=== PATIENT | female | born 1990 | race Caucasian/White ===

== ENCOUNTER 2016-10-23 17:48 | Emergency (ER) | payer MEDICAID ==
[~2016-10-23] VITALS: Ht 162.6 cm; Wt 65.0 kg
[~2016-10-23 17:48] MED LIST: ALBU18HF INHALATION; FERR28TA PO; PREN-39 PO; SODI44SP11 NASAL
[2016-10-23 18:00] VITALS: Ht 162.6 cm; Wt 65.0 kg
[2016-10-23] MEDS ORDERED: ALBUTEROL 0.5% (NEB) 2.5 MG/0.5 ML AMP INH STA (18:31)
[2016-10-23] MEDS ORDERED: DEXAMETHASONE 10 MG/ML 1 ML INJ IM STA (18:31)
[2016-10-23] MEDS ORDERED: IPRATROPIUM (NEB) 0.5 MG/2.5 ML AMP INH STA (18:31)
--- NOTE | 2016-10-23 19:19 | RADRPT ---
PROCEDURE: Chest Radiograph. CLINICAL INDICATION: Asthma exacerbation TECHNIQUE: Single frontal chest radiograph. COMPARISON: None available FINDINGS: The cardiomediastinal silhouette is within normal limits. No infiltrate or effusion is seen. Th e bones are intact. IMPRESSION: 1. Unremarkable chest radiograph. RPTAT: [facility] .You Bernstein MD, MD Date Time Electronically viewed and signed by .You Bernstein MD, on 10/23/2016 19:19 .B/
[2016-10-23] MEDS ORDERED: ALBU2.5V3 NEB (20:16)
[2016-10-23] MEDS ORDERED: ALBU18HF INHALATION (20:16)
[2016-10-23 20:29] VITALS: BP 109/59; PULSE 89; RESP 20; TEMP 98.8
--- NOTE | 2016-10-24 00:25 | ERD ---
ER Documentation Chief Complaint Date/Time DATE: 10/24/16 TIME: 00:23 Chief Complaint ASTHMA NO RELIEF W/HHN TX @HOME, SPEAKING FULL SENTENCES. HPI 25-year-old female patient with a past medical history of asthma presents the ED complaining of intermittent cough and shortness of breath that started 2 days ago. Reports that she used her inhaler without relief. States that she also used a nebulizer machine at home and stated that it did not help her symptoms. Denies any recent traveling. Denies any leg swelling. Denies any fever, chills, nausea, vomiting, chest pain, palpitations, abdominal pain. ROS All systems reviewed and are negative except as per history of present illness. Medications Home Meds Active Scripts Albuterol Sulfate* (Albuterol Sulfate* Neb) 0.083%-3 Ml Neb, 2.5 MG NEB Q4 Y for SHORTNESS OF BREATH, #30 EA Prov:ANIBAL CONRAD PA-C 10/23/16 Albuterol Sulfate* (Ventolin HFA*) 18 Gm Hfa.aer.ad, 2 PUFF INHALATION Q4H, #1 INHALER Prov:ANIBAL CONRAD PA-C 10/23/16 Sodium Chloride (Saline Nasal Gaston) 45 Ml Gaston, 2 SPRAYS NASAL Q2H Y for NASAL CONGESTION, #1 BOTTLE Prov:BRYN GARRISON NP 08/31/15 Albuterol Sulfate* (Ventolin HFA*) 18 Gm Hfa.aer.ad, 2 PUFF INHALATION Q4H, #1 INHALER Prov:BRYN GARRISON NP 08/31/15 Reported Medications Ferrous Sulfate (Ferrous Sulfate) 1 Tab Tablet, 1 TAB PO DAILY 02/18/11 Vits W-Ca,Fe,Fa(<1MG) ( Vitamins) 1 Tab Tablet, 1 TAB PO DAILY 02/18/11 Allergies Allergies: Coded Allergies: No Known Allergy (Verified , 02/18/11) PMhx/Soc History of Surgery: No Anesthesia Reaction: No Hx Neurological Disorder: No Hx Respiratory Disorders: Yes (ASTHMA) Hx Cardiac Disorders: No Hx Psychiatric Problems: No Hx Miscellaneous Medical Probl: No Hx Alcohol Use: No Hx Substance Use: No Hx Tobacco Use: No Smoking Status: Never smoker Physical Exam Vitals Vital Signs Date Time Temp Pulse Resp B/P Pulse Ox O2 Delivery O2 Flow Rate FiO2 9/11/17 20:29 98.8 89 20 109/59 96 Room Air 10/23/16 18:51 26 21 10/23/16 18:47 Nasal Cannula 2 10/23/16 18:00 98.2 65 18 121/73 93 Physical Exam Const: [id number], well-nourished. In no acute distress. Head: Atraumatic, normocephalic Eyes: Normal Conjunctiva without injection. No purulent discharge. PERRL. EOMI ENT: Normal external ear. Ear canal without erythema. Tympanic membrane pearly campbell without effusion or bulging. Nasal canal clear with normal turbinates. Moist oropharynx without tonsillar exudates. Non-erythematous pharynx. Uvula midline. No drooling. No trismus. Neck: Full range of motion. No meningismus. No cervical lymphadenopathy. Resp: Inspiratory and expiratory wheezing noted on left upper lung lobe. No rhonchi, rales, or crackles. No accessory muscle use. No retractions. Cardio: Regular rate and rhythm. No murmurs, rubs or gallops. Abd: Soft, non tender, non distended. Normal bowel sounds. No palpable masses. No rebound tenderness. No guarding. Skin: No petechiae or rashes Back: No midline tenderness. No CVA tenderness. Ext: No cyanosis, or edema. Neur: Awake and alert. Psych: Normal Mood and Affect Results 24 hrs Current Medications Medications (Trade) Dose Ordered Sig/Maureen Route PRN Reason Start Time Stop Time Status Last Admin Dose Admin Albuterol (Proventil 0.5% (Neb)) 10 mg ONCE STAT INH 10/23/16 18:31 10/23/16 18:32 DC 10/23/16 18:50 Ipratropium Marion (Atrovent 0.02% (Neb)) 1 mg ONCE STAT INH 10/23/16 18:31 10/23/16 18:32 DC 10/23/16 18:50 Dexamethasone (Decadron) 10 mg ONCE STAT IM 10/23/16 18:31 10/23/16 18:32 DC 10/23/16 18:49 Procedures/MDM 25-year-old female patient with a past medical history of asthma presents to the ED complaining of wheezing and shortness of breath started intermittently for 2 days associated with cough. Patient is afebrile and nontoxic-appearing. Patient has normal vital signs. A chest x-ray was ordered to further evaluate patient. A breathing treatment consisting of 10 mg continuous albuterol, 1 mg continuous Atrovent, 10 mg IM Decadron was ordered to further treat patient with improvement. Chest x-ray was negative for any pneumonia, pneumothorax, pleural effusion. Patient likely has an asthma exacerbation. Low suspicion for atypical SD, pneumonia, pulmonary embolism, pneumothorax, cardiac tamponade, sinusitis, peritonsillar abscess, mastoiditis, Zack's angina, retropharyngeal abscess, meningitis, sepsis or other emergent conditions. Patient's respiratory status has stabilized while in the department and is appropriate for outpatient work up. Exam and work up not consistent w/ impending respiratory failure or cardiovascular collapse. Discharge medications: Ventolin, Albuterol Follow up with primary care physician in 1-2 days. Instructed patient to return to the ED sooner for any worsening symptoms. Patient's questions were answered. Patient understood and agreed with discharge plan. Patient discharged stable. Departure Diagnosis: Primary Impression: Asthma with acute exacerbation Asthma severity: mild intermittent Qualified Code: J45.21 - Mild intermittent asthma with acute exacerbation Condition: Stable Patient Instructions: Asthma, Acute (Adult) Referrals: COMMUNITY CLINICS YOU HAVE RECEIVED A MEDICAL SCREENING EXAM AND THE RESULTS INDICATE THAT YOU DO NOT HAVE A CONDITION THAT REQUIRES URGENT TREATMENT IN THE EMERGENCY DEPARTMENT. FURTHER EVALUATION AND TREATMENT OF YOUR CONDITION CAN WAIT UNTIL YOU ARE SEEN IN YOUR DOCTORS OFFICE WITHIN THE NEXT 1-2 DAYS. IT IS YOUR RESPONSIBILITY TO MAKE AN APPOINTMENT FOR FOLOW-UP CARE. IF YOU HAVE A PRIMARY DOCTOR --you should call your primary doctor and schedule an appointment IF YOU DO NOT HAVE A PRIMARY DOCTOR YOU CAN CALL OUR PHYSICIAN REFERRAL HOTLINE AT IF YOU CAN NOT AFFORD TO SEE A PHYSICIAN YOU CAN CHOSE FROM THE FOLLOWING [facility] CLINICS [facility] [address] [place]. [facility] [address] [facility]. [facility] [address] [facility] [address] [facility] [address] [facility]. [facility] [address] [facility]. [facility] YOU HAVE RECEIVED A MEDICAL SCREENING EXAM AND THE RESULTS INDICATE THAT YOU DO NOT HAVE A CONDITION THAT REQUIRES URGENT TREATMENT IN THE EMERGENCY DEPARTMENT. FURTHER EVALUATION AND TREATMENT OF YOUR CONDITION CAN WAIT UNTIL YOU ARE SEEN IN YOUR DOCTORS OFFICE WITHIN THE NEXT 1-2 DAYS. IT IS YOUR RESPONSIBILITY TO MAKE AN APPOINTMENT FOR FOLOW-UP CARE. IF YOU HAVE A PRIMARY DOCTOR --you should call your primary doctor and schedule and appointment IF YOU DO NOT HAVE A PRIMARY DOCTOR YOU CAN CALL OUR PHYSICIAN REFERRAL HOTLINE AT . IF YOU CAN NOT AFFORD TO SEE A PHYSICIAN YOU CAN CHOSE FROM THE FOLLOWING [facility] INSTITUTIONS: [facility] [address] [place] [address] [facility] [address] [place] [address] [facility] [address] [place] [address] [facility] URGENT [facility]SPECIALTIES Additional Instructions: Call your primary care doctor TOMORROW for an appointment during the next 2-3 days.See the doctor sooner or return here if your condition worsens before your appointment time. ANIBAL CONRAD PA-C Oct 24, 2016 00:25
== END 2016-10-23 20:31 | disposition home or self-care (01) ==
LOC: FTE 17:48
DX: J45.21 Mild intermittent asthma with (acute) exacerbation (principal)
CPT/HCPCS: 71010; 94644; 96372; J1100; Z7502; Z7610